=== PATIENT | male | born 1990 | race Two or more races ===

== ENCOUNTER 2020-06-14 22:14 | Emergency (ER) | payer MEDICAID ==
[~2020-06-14] VITALS: Ht 182.9 cm; Wt 99.8 kg
[2020-06-14 22:28] VITALS: BP 122/77
[2020-06-14] MEDS: IPRATROPIUM BROM 0.5 MG/2.5ML INH SOL NEB ONE (22:52)
[2020-06-14] MEDS: ALBUTEROL SULF 2.5 MG/0.5ML(0.5%) NEB SOLN NEB ONE (22:52)
== END 2020-06-15 00:13 | disposition left against medical advice (07) ==
LOC: ER 22:17
DX: J45.901 Unspecified asthma with (acute) exacerbation (principal); Z53.21 Procedure and treatment not carried out due to patient leaving prior to being seen by health care provider
CPT/HCPCS: 94640; J7644

== ENCOUNTER 2021-07-07 02:51 | Emergency (ER) | payer MEDICAID ==
[~2021-07-07] VITALS: Ht 182.9 cm; Wt 102.1 kg
[2021-07-07 03:02] VITALS: BP 142/68
[2021-07-07] MEDS ORDERED: IPRATROPIUM BROM 0.5 MG/2.5ML INH SOL NEB ONE (03:30)
[2021-07-07] MEDS ORDERED: ALBUTEROL SULF 2.5 MG/0.5ML(0.5%) NEB SOLN NEB ONE (03:30)
== END 2021-07-07 07:20 | disposition left against medical advice (07) ==
LOC: ER 02:51
DX: R06.02 Shortness of breath (principal); Z53.21 Procedure and treatment not carried out due to patient leaving prior to being seen by health care provider